=== PATIENT | female | born 1975 | race American Indian/Alaskan Native ===

== ENCOUNTER 2021-01-09 07:44 | Emergency (ER) | payer OTHER ==
[2021-01-09 07:55] VITALS: BP 107/72
[2021-01-09] MEDS ORDERED: IBUPROFEN 600 MG TAB PO ONE (11:43)
--- NOTE | 2021-01-09 11:44 | Emergency Department Report ---
ED ENT HPI - General Chief complaint: Sore Throat Stated complaint: SORE THROAT Time Seen by Provider: 01/09/21 11:37 Source: patient Mode of arrival: Ambulatory Limitations: No Limitations - History of Present Illness Initial comments: The patient was evaluated in the emergency department for symptoms described in the history of present illness. He/she was evaluated in the context of the global COVID-19 pandemic, which necessitated consideration that the patient might be at risk for infection with the virus that causes COVID-19. Institutional protocols and algorithms that pertain to the evaluation of patients at risk for COVID-19 are in a state of rapid change based on information released by regulatory bodies including the CDC and federal and state organizations. These policies and algorithms were followed during the patient's care in the emergency department. Please note that these policies, procedures and recommendations changed on a rapid basis. 45-year-old -[place] female presents to the emergency room complaining of a 3-day history of sore throat. Patient denies any fever nausea vomiting chest pain or shortness of breath. She does state that she has taken TheraFlu. She reports she is having intermittent cough. She is allergic to iodine and all seafood. Dates the pain is worse when she swallows. MD complaint: sore throat Onset/Timin -: days(s) Location: throat Severity scale (0 -10): 8 Quality: stabbing, sharp Consistency: intermittent Improves with: none Worsens with: swallowing Associated Symptoms: cough (Intermittent), pain with swallowing, sore throat. denies: fever, gum swelling, toothache, discharge from ear, rhinorrhea - Related Data Previous Rx's Medication Instructions Recorded Last Taken Type Amoxicillin [Trimox CAP] 500 mg PO Q8H 10 Days #30 capsule 01/09/21 Unknown Rx Ibuprofen [Motrin 800 MG tab] 800 mg PO Q8HR PRN #21 tablet 01/09/21 Unknown Rx Allergies Allergy/AdvReac Type Severity Reaction Status Date / Time Iodine and Iodide Containing Allergy Hives Verified 01/09/21 07:50 Produc SEAFOOD Allergy Hives Uncoded 01/09/21 07:50 ED Dental HPI - General Chief complaint: Sore Throat Stated complaint: SORE THROAT Time Seen by Provider: 01/09/21 11:37 Source: patient Mode of arrival: Ambulatory Limitations: No Limitations - Related Data Previous Rx's Medication Instructions Recorded Last Taken Type Amoxicillin [Trimox CAP] 500 mg PO Q8H 10 Days #30 capsule 01/09/21 Unknown Rx Ibuprofen [Motrin 800 MG tab] 800 mg PO Q8HR PRN #21 tablet 01/09/21 Unknown Rx Allergies Allergy/AdvReac Type Severity Reaction Status Date / Time Iodine and Iodide Containing Allergy Hives Verified 01/09/21 07:50 Produc SEAFOOD Allergy Hives Uncoded 01/09/21 07:50 ED Review of Systems ROS: Stated complaint: SORE THROAT Other details as noted in HPI Comment: All other systems reviewed and negative ED Past Medical Hx - Medications Home Medications: Home Medications Medication Instructions Recorded Confirmed Last Taken Type Amoxicillin [Trimox CAP] 500 mg PO Q8H 10 Days #30 capsule 01/09/21 Unknown Rx Ibuprofen [Motrin 800 MG tab] 800 mg PO Q8HR PRN #21 tablet 01/09/21 Unknown Rx ED Physical Exam - General Limitations: No Limitations General appearance: alert, in no apparent distress - Head Head exam: Present: atraumatic, normocephalic - Eye Eye exam: Present: normal appearance - ENT ENT exam: Present: mucous membranes moist - Expanded ENT Exam Expanded Throat exam: Positive: tonsillar erythema, tonsillomegaly - Neck Neck exam: Present: tenderness, full ROM - Respiratory Respiratory exam: Present: normal lung sounds bilaterally. Absent: accessory muscle use - Cardiovascular Cardiovascular Exam: Present: regular rate - GI/Abdominal GI/Abdominal exam: Present: soft. Absent: distended - Neurological Exam Neurological exam: Present: alert, oriented X3, normal gait - Psychiatric Psychiatric exam: Present: normal affect, normal mood - Skin Skin exam: Present: warm, dry, intact, normal color. Absent: rash ED Course Vital Signs 01/09/21 01/09/21 07:49 07:54 Temperature 98.3 F 98.3 F Pulse Rate 109 H 72 Respiratory 20 18 Rate Blood Pressure 107/62 Blood Pressure 107/72 [Right] O2 Sat by Pulse 100 100 Oximetry ED Medical Decision Making - Lab Data Lab Results 01/09/21 Range/Units Unknown Group A Strep Rapid Positive A (Negative) - Medical Decision Making 45-year-old -[place] female presents to the emergency room complaining of a 3-day history of sore throat. Patient denies any fever nausea vomiting chest pain or shortness of breath. She does state that she has taken TheraFlu. She reports she is having intermittent cough. She is allergic to iodine and all seafood. Dates the pain is worse when she swallows. Strep test obtained by this provider and sent to lab. Strep test positive patient be placed on amoxicillin every 8 hours and ibuprofen as needed. Increase fluid intake follow-up with primary care provider. Critical care attestation.: If time is entered above; I have spent that time in minutes in the direct care of this critically ill patient, excluding procedure time. ED Disposition Clinical Impression: Strep sore throat Disposition: 01 HOME / SELF CARE / HOMELESS Is pt being admited?: No Does the pt Need Aspirin: No Condition: Stable Instructions: Strep Throat, Adult, [id number] Additional Instructions: Strep test positive for strep. Complete antibiotics pain medication as needed increase your fluid intake. Follow-up with your primary care provider. Prescriptions: Ibuprofen [Motrin 800 MG tab] 800 mg PO Q8HR PRN #21 tablet PRN Reason: Pain , Severe (7-10) Amoxicillin [Trimox CAP] 500 mg PO Q8H 10 Days #30 capsule Referrals: PRIMARY MD IRON [Primary Care Provider] - 3-5 Days MIGNON YOO MD [Staff Physician] - 3-5 Days Forms: Work/School Release Form(ED) Time of Disposition: 12:16
== END 2021-01-09 12:29 | disposition home or self-care (01) ==
LOC: ED 07:44
DX: J02.0 Streptococcal pharyngitis (principal)
CPT/HCPCS: 87430; 99283

== ENCOUNTER 2021-06-08 14:22 | Emergency (ER) | payer OTHER ==
[2021-06-08 16:54] VITALS: BP 129/83
[2021-06-08 17:35] LABS: Basophils % (Auto) 0.3 % (0.0-1.8); Eosinophils # (Auto) 0.4 K/mm3 (0.0-0.4); Hematocrit 34.3 % (30.3-42.9); Hemoglobin 10.8 gm/dl (10.1-14.3); Lymphocytes # (Auto) 1.6 K/mm3 (1.2-5.4); Lymphocytes % (Auto) 29.1 % (13.4-35.0); Mean Corpuscular HGB Conc 31 % (30-34); Mean Corpuscular Volume 76 fl (79-97); Monocytes # (Auto) 0.6 K/mm3 (0.0-0.8); Monocytes % (Auto) 11.7 % (0.0-7.3); Platelet Count 317 K/mm3 (140-440); Red Blood Count 4.49 M/mm3 (3.65-5.03)
[2021-06-08 17:37] LABS: Alanine Aminotransferase 11 units/L (7-56); Albumin 4.1 g/dL (3.9-5); Blood Urea Nitrogen 12 mg/dL (7-17); Calcium 9.3 mg/dL (8.4-10.2); Hemolysis Index 6
[2021-06-08 17:44] LABS: BUN/Creatinine Ratio 20; Bilirubin,Direct < 0.2 mg/dL (0-0.2)
--- NOTE | 2021-06-08 22:11 | Emergency Department Report ---
ED Abdominal Pain HPI - General Chief Complaint: Abdominal Pain Stated Complaint: BLOOD IN STOOK/STOMACH PAIN Time Seen by Provider: 06/08/21 21:43 Source: patient Mode of arrival: Ambulatory Limitations: No Limitations - History of Present Illness Initial Comments: Patient is a 46-year-old female presenting to ED with complaint of lower abdominal pain and passing dark blood per rectum. She reports history of hemorrhoids that she has had for some time. States she also felt a sharp pain in her lower abdomen that radiated through to her back. She denies nausea or vomiting. There are no modifying factors. Severity scale (0 -10): 8 - Related Data Previous Rx's Medication Instructions Recorded Last Taken Type Amoxicillin [Trimox CAP] 500 mg PO Q8H 10 Days #30 capsule 01/09/21 Unknown Rx Ibuprofen [Motrin 800 MG tab] 800 mg PO Q8HR PRN #21 tablet 01/09/21 Unknown Rx Allergies Allergy/AdvReac Type Severity Reaction Status Date / Time Iodine and Iodide Containing Allergy Hives Verified 01/09/21 07:50 Produc SEAFOOD Allergy Hives Uncoded 01/09/21 07:50 ED Review of Systems ROS: Stated complaint: BLOOD IN STOOK/STOMACH PAIN Other details as noted in HPI Comment: All other systems reviewed and negative Constitutional: denies: chills, fever Respiratory: denies: cough, shortness of breath, wheezing Cardiovascular: denies: chest pain, palpitations Gastrointestinal: abdominal pain, melena Musculoskeletal: denies: back pain, joint swelling, arthralgia Skin: denies: rash, lesions Neurological: denies: headache, weakness, paresthesias Psychiatric: denies: anxiety, depression Hematological/Lymphatic: denies: easy bleeding, easy bruising ED Past Medical Hx - Medications Home Medications: Home Medications Medication Instructions Recorded Confirmed Last Taken Type Amoxicillin [Trimox CAP] 500 mg PO Q8H 10 Days #30 capsule 01/09/21 Unknown Rx Ibuprofen [Motrin 800 MG tab] 800 mg PO Q8HR PRN #21 tablet 01/09/21 Unknown Rx ED Physical Exam - General Limitations: No Limitations General appearance: alert, in no apparent distress - Head Head exam: Present: atraumatic, normocephalic - Respiratory Respiratory exam: Present: normal lung sounds bilaterally. Absent: respiratory distress - Cardiovascular Cardiovascular Exam: Present: regular rate, normal rhythm. Absent: systolic murmur, diastolic murmur, rubs, gallop - GI/Abdominal GI/Abdominal exam: Present: soft, normal bowel sounds - Rectal Rectal exam: Present: normal rectal tone. Absent: black stool, bloody stool, hemorrhoids - Neurological Exam Neurological exam: Present: alert, oriented X3 - Psychiatric Psychiatric exam: Present: normal affect, normal mood - Skin Skin exam: Present: warm, dry, intact, normal color. Absent: rash ED Course Vital Signs 06/08/21 16:50 Temperature 98.8 F Pulse Rate 94 H Respiratory 18 Rate Blood Pressure 129/83 [Right] O2 Sat by Pulse 98 Oximetry ED Medical Decision Making - Lab Data Result diagrams: 06/08/21 17:00 06/08/21 17:00 - Medical Decision Making CBC and CMP grossly unremarkable. H&H is within normal range. CT abdomen pelvis shows no acute abnormalities. Patient is stable for discharge home with return precautions. Critical care attestation.: If time is entered above; I have spent that time in minutes in the direct care of this critically ill patient, excluding procedure time. ED Disposition Clinical Impression: Abdominal pain, lower Disposition: 01 HOME / SELF CARE / HOMELESS Is pt being admited?: No Condition: Stable Instructions: Abdominal Pain (ED), Rectal Bleeding, [id number], Abdominal Pain, Adult Referrals: MIGNON YOO MD [Primary Care Provider] - 3-5 Days Time of Disposition: 23:25
--- NOTE | 2021-06-08 22:54 | Cat Scan Report ---
CT ABDOMEN AND PELVIS WITHOUT CONTRAST INDICATION / CLINICAL INFORMATION: Left lower quadrant/flank pain. TECHNIQUE: Axial CT images were obtained through the abdomen and pelvis without IV contrast. All CT scans at this location are performed using CT dose reduction for ALARA by means of automated exposure control. COMPARISON: None available. FINDINGS: LOWER CHEST: Small hiatal hernia. LIVER: Multiple hypodense lesions are present. These could be compatible with hepatic cysts.. GALLBLADDER: No significant abnormality. BILE DUCTS: No significant abnormality. SPLEEN: No significant abnormality. PANCREAS: No significant abnormality. ADRENALS: No significant abnormality. KIDNEYS/URETERS: No stones or hydronephrosis. No solid renal lesion. STOMACH / DUODENUM / SMALL BOWEL: The stomach, duodenum, and small bowel demonstrate no significant a bnormality. No specific abnormality of the mesentery demonstrated. COLON: No significant abnormality. APPENDIX: No significant abnormality. PERITONEUM: No free air or free fluid are present within the abdomen or pelvis. LYMPH NODES: No significant adenopathy. AORTA / ARTERIES: No significant abnormality. IVC / VEINS: No significant abnormality. URINARY BLADDER: No significant abnormality. REPRODUCTIVE ORGANS: Hypoattenuating subserosal lesion anterior uterine wall thought to reflect subse edwin fibroid with cystic degeneration. This measures 2.7 x 1.9 cm. ADDITIONAL ABDOMINAL/PELVIC FINDINGS: None. SKELETAL SYSTEM: No significant abnormality. IMPRESSION: 1. No acute findings within the abdomen or pelvis. Signer Name: Eddi Hutchins II, MD Signed: 06/08/2021 10:49 PM Workstation Name: [id number]
== END 2021-06-08 23:50 | disposition home or self-care (01) ==
LOC: ED 14:22
DX: R10.30 Lower abdominal pain, unspecified (principal); Z91.013 Allergy to seafood; Z91.041 Radiographic dye allergy status
CPT/HCPCS: 36415; 74176; 80048; 80076; 83690; 85025; 99284